=== PATIENT | female | born 2000 | race Asian ===

== ENCOUNTER 2023-04-03 12:53 | Emergency (ER) | payer OTHER ==
[~2023-04-03] VITALS: Ht 154.9 cm; Wt 72.6 kg
[2023-04-03 13:52] LABS: PLATELET COUNT 209 K/uL (152-353)
[2023-04-03 15:00] VITALS: BP 114/70; TEMP 98.2
== END 2023-04-03 15:00 | disposition home or self-care (01) ==
LOC: ED 12:53
PROVIDERS: Family Medicine
DX: U07.1 COVID-19 (principal); J06.9 Acute upper respiratory infection, unspecified
CPT/HCPCS: 36415; 85027; 87651; 99283